=== PATIENT | male | born 1995 | race Caucasian/White ===

== ENCOUNTER 2018-10-28 05:32 | Emergency (ER) | payer SELFPAY ==
[~2018-10-28] VITALS: Ht 170.2 cm; Wt 82.6 kg
[2018-10-28 05:34] VITALS: BP 150/94; PULSE 77; RESP 20; Ht 170.2 cm; Wt 82.6 kg
[2018-10-28] MEDS ORDERED: IBUP-1542 PO (06:17)
[2018-10-28] MEDS ORDERED: CYCL10TA7 PO (06:18)
--- NOTE | 2018-10-28 06:32 | ERD ---
ER Documentation Chief Complaint Chief Complaint LEFT LOWER BACK PAIN, RADIATES LEFT LEG HPI 23-year-old male presents the emergency department complaining of low back pain. Patient was in his usual state of health until yesterday at which time he tried to lift a heavy box. Since then, he has had pain in his left lower back rating down his left leg. He denies fevers, chills, numbness, tingling, bowel or bladder incontinence, saddle anesthesia. ROS All systems reviewed and are negative except as per history of present illness. Medications Home Meds Active Scripts Cyclobenzaprine Hcl* (Cyclobenzaprine Hcl*) 10 Mg Tablet, 10 MG PO Q8 PRN for PAIN, #10 TAB Prov:CHELLY RAMSAY 10/28/18 Ibuprofen* (Ibuprofen*) 600 Mg Tablet, 600 MG PO Q6H PRN for PAIN, #20 TAB Prov:CHELLY RAMSAY 10/28/18 Allergies Allergies: Coded Allergies: No Known Allergy (Unverified , 10/28/18) PMhx/Soc Medical and Surgical Hx: pt denies Medical Hx, pt denies Surgical Hx Hx Alcohol Use: No Hx Substance Use: No Hx Tobacco Use: No Smoking Status: Never smoker Physical Exam Vitals Vital Signs Date Temp Pulse Resp B/P (MAP) Pulse Ox O2 O2 Flow FiO2 Time Delivery Rate 10/28/18 97.0 77 20 150/94 97 05:34 (112) Physical Exam General: well developed, well nourished, in no distress. Neuro: Normal speech, gait, balance. Normal motor and sensory examination in both lower extremities. Back: No midline spinal tenderness, spasm, step-off Extremities: Full range of motion without limitation. No trauma noted Procedures/MDM Patient was taken to a room, seen and examined Medical decision making: Patient presents today with atraumatic back pain. Although infection, malignancy, GI, , and vascular causes have been considered in this patient, the patients clinical presentation is most consistent with a musculoskeletal cause. There is neither evidence of any acute neurologic damage, nor of loss of function and thus, advanced imaging studies have been deferred. Patient will be treated conservatively with appropriate pain control with precautionary discharge instructions provided. Departure Diagnosis: Primary Impression: Back pain Condition: Stable Patient Instructions: Back Pain (Acute Or Chronic) Additional Instructions: Please see your doctor if not improved in the next 5 days CHELLY RAMSAY Oct 28, 2018 06:31
== END 2018-10-28 06:45 | disposition home or self-care (01) ==
LOC: FTE 05:32
DX: M54.5 Low back pain (principal)
CPT/HCPCS: 99283